=== PATIENT | female | born 1970 | race African-American/Black ===

== ENCOUNTER 2025-06-24 18:55 | Emergency (ER) | payer BC ==
[~2025-06-24] VITALS: Ht 152.4 cm; Wt 70.0 kg
[2025-06-24 19:01] VITALS: O2SAT 97
[2025-06-24] MEDS ORDERED: FAMOTIDINE 20MG/2ML VIAL IV ONE (19:30)
[2025-06-24] MEDS ORDERED: METHYLPREDNISOLONE SOD SUCC 125MG/2ML (ACT-O-VIAL) IV ONE (19:30)
[2025-06-24] MEDS: SODIUM CHLORIDE 0.9% 1,000 ML IV STA (19:36)
[2025-06-24] MEDS: METHYLPREDNISOLONE SOD SUCC 125MG/2ML (ACT-O-VIAL) IV SCH (20:45)
[2025-06-24] MEDS: FAMOTIDINE 20MG/2ML VIAL IV SCH (20:45)
[2025-06-24] MEDS ORDERED: EPIN0.3P3 IM (20:49)
[2025-06-24 21:40] VITALS: BP 122/76; PULSE 84; RESP 18; TEMP 36.6; O2SAT 97
== END 2025-06-24 21:40 | disposition left against medical advice (07) ==
LOC: ER 18:55
DX: T78.2XXA Anaphylactic shock, unspecified, initial encounter (principal); X58.XXXA Exposure to other specified factors, initial encounter; Y93.89 Activity, other specified; Y92.89 Other specified places as the place of occurrence of the external cause; Y99.8 Other external cause status
CPT/HCPCS: 99283; J7030; J1308; J2919